=== PATIENT | male | born 1985 | race Caucasian/White ===

== ENCOUNTER 2020-07-10 10:12 | Emergency (ER) | payer OTHER ==
[2020-07-10 11:37] LABS: BASOPHIL 0.6 % (0-2); EOSINOPHIL 1.2 % (0-5); HCT 43.4 % (42.0-52.0); HGB 14.9 g/dl (13.2-18.0); LYMPHOCYTE 26.1 % (15-48); MCH 31.2 pg (25.0-31.0); MCHC 34.3 g/dL (32.0-36.0); MCV 90.8 fL (78.0-100.0); MONOCYTE 9.8 % (0-12); MPV 12.2 fL (6.0-9.5); NEUTROPHIL 62.1 % (41-80); NRBC 0; PLT 151 K/uL (150-400); RBC 4.78 M/uL (4.70-6.00); RDW 12.3 % (11.5-14.0); WBC 8.6 K/uL (4.0-10.5)
[2020-07-10 11:51] LABS: ALBUMIN 3.8 g/dL (3.4-5.0); BILIRUBIN - TOTAL 0.5 mg/dL (0.2-1.0); BUN/CREAT RATIO (CALC) 15.3 RATIO; CREATININE 1.11 mg/dL (0.67-1.17); GLOBULIN (CALCULATION) 3.3 g/dL; POTASSIUM 3.9 mmol/L (3.5-5.1); TOTAL PROTEIN 7.1 g/dL (6.4-8.2)
[2020-07-10] MEDS ORDERED: ROBAXIN750 MG PO (13:31)
[2020-07-10] MEDS ORDERED: MOBIC15 MG PO (13:31)
== END 2020-07-10 13:45 | disposition home or self-care (01) ==
LOC: FER 10:12
PROVIDERS: Emergency Medicine
DX: S29.011A Strain of muscle and tendon of front wall of thorax, initial encounter (principal); R06.02 Shortness of breath; R00.0 Tachycardia, unspecified; F17.210 Nicotine dependence, cigarettes, uncomplicated; Z88.5 Allergy status to narcotic agent; X50.9XXA Other and unspecified overexertion or strenuous movements or postures, initial encounter; Y92.89 Other specified places as the place of occurrence of the external cause; Y99.0 Civilian activity done for income or pay
CPT/HCPCS: 36415; 71046; 80053; 84484; 85025; 85379; 93005; J1885; J7030